=== PATIENT | female | born 1940 | race Caucasian/White ===

== ENCOUNTER 2020-10-16 06:05 | Day surgery (SDC) | payer MEDICARE, OTHER ==
[~2020-10-16] VITALS: Ht 170.2 cm; Wt 81.7 kg
[~2020-10-16 06:05] MED LIST: ALBU90OI INH; ALLEGRA ALLERG180 MG PO; FLUSAL2505 IH; Flonase 0.05% N16 GM; IPRATROPIUM BRO15 ML; LEVOTHYROXINE112 MC1 PO; LEVSOD25 PO; NAPR500 PO; OCUVITE PO; PANT40 PO; PRED20 PO; SUCR1 PO; Sudogest30 MG PO; TUMS500 MG PO
--- NOTE | 2020-10-16 06:20 | NUR ---
History, Chart, Medications and Allergies reviewed before start of procedure. Patient confirms NPO status and agrees with scheduled surgery.
--- NOTE | 2020-10-16 07:04 | NUR ---
Lungs clear T/O to Auscultation. 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
--- NOTE | 2020-10-16 07:28 | NUR ---
PATIENT OFFERED WARMING BLANKET PRIOR TO GOING TO SURGERY, BUT DECLINED. PATIENT WAS GIVEN WARM BLAKETS INSTEAD.
--- NOTE | 2020-10-16 10:37 | NUR ---
ADMISSION PT ARRIVED TO UNIT AT APROX 1015 FROM PACU. PT REPORTS NO SENSATION BLE L2, NO GROSS MVMT BLE. PT DENIES PAIN AT THIS TIME. AQUACEL DRESSING TO R ANTERIOR HIP C/D/I. LUNGS CLEAR. PT GIVEN CLEAR LIQUIDS AND CRACKERS, WILL ADVANCE TOLERATED.
--- NOTE | 2020-10-16 17:16 | NUR ---
SHIFT SUMMARY PT POD 0 R ILDA. AQUACEL DRESSING C/D/I. PT PAIN HAS BEEN WELL MANAGED WITH SCHEDULED TYLENOL AND TORADOL. TOLERATING REGULAR DIET-SALINE LOCKED, DENIES N/V. VOIDING. WORKED WITH PT, UP TO CHAIR.
[2020-10-17 04:02] LABS: BASOPHILS ABSOLUTE AUTO 0.01 K/mm3 (0.00-0.23); BASOPHILS PERCENT AUTO 0 % (0-2); EOSINOPHILS PERCENT AUTO 0 % (0-6); Hematocrit 33.2 % (33.0-51.0); Hemoglobin 10.9 g/dL (11.5-16.0); IMMATURE GRAN ABSOLUTE AUTO 0.03 K/mm3 (0.00-0.10); IMMATURE GRAN PERCENT AUTO 0 % (0-1); LYMPHOCYTES ABSOLUTE AUTO 0.72 K/mm3 (0.84-5.20); LYMPHOCYTES PERCENT AUTO 7 % (21-46); MONOCYTES ABSOLUTE AUTO 0.68 K/mm3 (0.16-1.47); MONOCYTES PERCENT AUTO 7 % (4-13); Mean Corpuscular HGB 30.1 pg (26.0-34.0); Mean Corpuscular HGB Conc 32.8 g/dL (31.5-36.5); Mean Corpuscular Volume 92 fL (80-100); Mean Platelet Volume 10.6 fL (9.1-12.4); NEUTROPHILS ABSOLUTE AUTO 8.36 K/mm3 (1.96-9.15); NEUTROPHILS PERCENT AUTO 85 % (41-73); Platelet Count 224 K/mm3 (150-400); RDW Standard Deviation 43.8 fL (35.1-46.3); Red Blood Cell Count 3.62 M/mm3 (3.80-5.20)
[2020-10-17 04:20] LABS: Anion Gap 3 mmol/L (6-16); Blood Urea Nitrogen 18 mg/dL (8-24); Bun/Creatinine Ratio 19.4 (12.0-20.0); CO2, Blood 28 mmol/L (21-32); Calcium, Blood 8.7 mg/dL (8.5-10.1); Chloride, Blood 106 mmol/L (98-108); Creatinine, Blood 0.93 mg/dL (0.40-1.00); Glomerular Filtration Rate >60 (60-); Glucose, Blood 120 mg/dL (70-99); Magnesium, Blood 2.2 mg/dL (1.6-2.4); Potassium, Blood 4.8 mmol/L (3.5-5.5); Sodium, Blood 137 mmol/L (136-145)
--- NOTE | 2020-10-17 06:52 | NUR ---
SHIFT SUMMARY: SAVI IS A&OX4, MILDLY GRINDSTONE AT TIMES. VSS, NO ACUTE EVENTS OVERNIGHT. DARLING HOSE, PAS AND POLAR PACK IN PLACE. SHE REPORTS ADEQUATE PAIN CONTROL WTIH APAP AND TORADOL. SHE AMBULATES TO THE BATHROOM WITH A GAIT BELT AND FWW, ONE PERSON ASSIST. SHE IS TOLERATING PO INTAKE WELL. SHE USES HER CALL LIGHT APPROPRIATELY. IV SALINE LOCKED. SHE IS LYING IN BED WITH HER CALL LIGHT IN REACH. WILL REPORT TO DAY SHIFT RN.
[2020-10-17] MEDS ORDERED: ACET500 PO (08:50)
[2020-10-17] MEDS ORDERED: OXAYDO5 M1 PO (08:51)
[2020-10-17] MEDS ORDERED: Aspir 8181 MG PO (08:51)
--- NOTE | 2020-10-17 11:22 | NUR ---
DISCHARGE SUMMARY PT A&OX4, VSS, LEFT FLOOR VIA WC WITH STORE STOCKER, TO GO HOME WITH , WITH ALL PERSONAL POSSESSIONS INCLUDING DC PACKET, 1 NARC SCRIPT, 2 AQUACEL DRESSINGS, POLAR TOÑO. DC INS PROVIDED. PT REP UNDERSTANDING THOSE INSTRUCTIONS INCLUDING FU WITH SURGEON, WHEN TO CHANGE DRESSING, SHORT FREQUENT AMBULATION W/FWW, REPOSITIONING FOR COMFORT/PAIN MGMT, PT EXERCISES, USE ICE AND ELEVATE BLE'S AT REST. IV DC'D.
== END 2020-10-17 10:00 | disposition home or self-care (01) ==
LOC: ORSCMMR 06:05 → ORD 07:30 → ORSCMMR 07:30 → SURS 10:07 → ORSCMMR 10-17 10:00 → SURS 10-17 10:00
PROVIDERS: Orthopaedic Surgery
PROC: 0SR90JA Replacement of Right Hip Joint with Synthetic Substitute, Uncemented, Open Approach (ICD-10-PCS; principal; 2020-10-16 07:30)
DX: M16.11 Unilateral primary osteoarthritis, right hip (principal); E03.9 Hypothyroidism, unspecified; Z87.891 Personal history of nicotine dependence; J45.909 Unspecified asthma, uncomplicated; Z79.899 Other long term (current) drug therapy
CPT/HCPCS: 36415; 72170; 80048; 83735; 85025; 88300; 97110; 97116; 97161; 97530; A9270; A9270-GY; C1713; C1776; J0171; J0690; J0735; J1100; J1885; J2250; J2370; J2405; J2704; J2795; J3010; J7120

== ENCOUNTER → 2022-11-01 | Outpatient (CLI) | payer MEDICARE, OTHER ==
[~2022-11-01] MED LIST changes: +ACET500 PO; +Aspir 8181 MG PO; +OXAYDO5 M1 PO
[2022-11-01 19:42] LABS: Bilirubin, Urine Neg (Neg); Blood, Urine 2+ (Neg); Color, Urine Yellow (P-Yellow); Glucose Qualitative, Urine Neg (Neg); Ketones, Urine 1+ (Neg); Leukocyte Esterase, Urine Neg (Neg); Nitrite, Urine Neg (Neg); Protein, Urine 2+ (Neg); Specific Gravity, Urine 1.015 (1.003-1.022); Urobilinogen, Urine NORM (Normal); pH, Urine 6.5 (5.0-8.0)
[2022-11-01 20:10] LABS: Albumin, Blood 3.6 g/dL (3.4-5.0); Bilirubin, Total 0.4 mg/dL (0.1-1.0); Calcium, Blood 9.5 mg/dL (8.5-10.1); Creatinine, Blood 0.87 mg/dL (0.40-1.00); Globulin, Blood 3.5 g/dL (2.2-4.0); Total Protein, Blood 7.1 g/dL (6.4-8.2)
[2022-11-01 20:20] LABS: Appearance, Urine Hazy (Clear)
[2022-11-01 20:21] LABS: Bacteria Mod /hpf; Red Blood Cells, Urine 0-2 /hpf (0-2); Squamous Epithelial Cells Rare /hpf (Few); White Blood Cells, Urine 0-2 /hpf (0-5)
[2022-11-01 20:22] LABS: Mucus Light (0-Heavy)
== END | disposition home or self-care (01) ==
LOC: LAB 16:25 → LAB SHORT 16:25
PROVIDERS: Family Medicine
DX: N30.10 Interstitial cystitis (chronic) without hematuria (principal)
CPT/HCPCS: 80053; 81001; 87086

== ENCOUNTER 2022-11-11 09:39 | Day surgery (SDC) | payer MEDICARE, OTHER ==
[~2022-11-11] VITALS: Ht 170.2 cm; Wt 79.9 kg
== END 2022-11-11 12:10 | disposition home or self-care (01) ==
LOC: ORSCSDS 09:39
PROVIDERS: Internal Medicine Gastroenterology
PROC: 0DB58ZX Excision of Esophagus, Via Natural or Artificial Opening Endoscopic, Diagnostic (ICD-10-PCS; principal; 2022-11-11 11:00)
PROC: 0DB78ZX Excision of Stomach, Pylorus, Via Natural or Artificial Opening Endoscopic, Diagnostic (ICD-10-PCS; principal; 2022-11-11 11:00)
PROC: 0D757ZZ Dilation of Esophagus, Via Natural or Artificial Opening (ICD-10-PCS; principal; 2022-11-11 11:00)
DX: K22.70 Barrett's esophagus without dysplasia (principal); K21.9 Gastro-esophageal reflux disease without esophagitis; K31.7 Polyp of stomach and duodenum; K22.2 Esophageal obstruction; Z87.891 Personal history of nicotine dependence; E03.9 Hypothyroidism, unspecified; Z79.899 Other long term (current) drug therapy
CPT/HCPCS: J2704; J7120

== ENCOUNTER → 2022-12-06 | Outpatient (CLI) | payer MEDICARE, OTHER ==
[2022-12-06 14:37] LABS: Source, Urine Clean Catch
[2022-12-06 16:35] LABS: Red Blood Cells, Urine 0-2 /hpf (0-2)
[2022-12-06 16:37] LABS: Bacteria Few /hpf; Squamous Epithelial Cells Few /hpf (Few)
== END | disposition home or self-care (01) ==
LOC: LAB SHORT 14:34 → LAB 14:34
PROVIDERS: Family Medicine
DX: N30.10 Interstitial cystitis (chronic) without hematuria (principal)
CPT/HCPCS: 81015; 87086

== ENCOUNTER → 2025-09-19 | Outpatient (CLI) | payer MEDICARE, OTHER ==
[2025-09-19 18:50] LABS: Campylobacter Sp Not Detected (NOT DETECT); E. Coli O157 Not Detected (NOT DETECT); Enteroaggregative E. coli-EAEC Not Detected (NOT DETECT); Enteropathogenic E. coli-EPEC Not Detected (NOT DETECT); Enterotoxigenic E. coli-ETEC Not Detected (NOT DETECT); Salmonella Sp Not Detected (NOT DETECT); Shiga Toxin-prod E. coli-STEC Not Detected (NOT DETECT); Shigella/Enteroin E. coli-EIEC Not Detected (NOT DETECT); Vibrio Sp Not Detected (NOT DETECT)
[2025-09-21 19:49] LABS: PANCREATIC ELASTASE,FECAL >800 ug/g (>=100)
== END ==
LOC: LAB SHORT 12:30 → LAB 12:30
PROVIDERS: Family Medicine
DX: A06.1 Chronic intestinal amebiasis (principal)
CPT/HCPCS: 82653; 87507